=== PATIENT | female | born 1990 | race Caucasian/White ===

== ENCOUNTER 2016-07-01 15:50 | Emergency (ER) | payer OTHER ==
[2016-07-01] MEDS ORDERED: PHENAZOPYRIDINE 100 MG TABLET PO STA (16:26)
[2016-07-01] MEDS ORDERED: SULFAMETH/TRIMETH DS 800/160 MG TABLET PO STA (16:26)
[2016-07-01] MEDS ORDERED: SULFAMETH/TRIMETH DS 800/160 MG TABLET PO ONE (16:28)
[2016-07-01] MEDS ORDERED: PHENAZOPYRIDINE 100 MG TABLET PO ONE (16:29)
== END 2016-07-01 16:32 | disposition home or self-care (01) ==
DX: N30.90 Cystitis, unspecified without hematuria (principal)
CPT/HCPCS: 81001; 81025; 87077; 87086; 87181; 99283; A9270

== ENCOUNTER 2016-09-18 17:11 | Emergency (ER) | payer OTHER ==
[2016-09-18 17:36] VITALS: BP 99/64
== END 2016-09-18 18:34 | disposition left against medical advice (07) ==
LOC: ED 17:11
DX: Z53.21 Procedure and treatment not carried out due to patient leaving prior to being seen by health care provider (principal)

== ENCOUNTER 2016-10-23 17:36 | Emergency (ER) | payer OTHER ==
[2016-10-23 18:02] LABS: BILIRUBIN,URINE NEGATIVE (NEGATIVE); PH,URINE 6.5 PH (5.0-7.5)
[2016-10-23 18:07] LABS: UA CHARGE (STRIP ONLY) YES; UR CULTURE IF IND NOT INDICATED
[2016-10-23 18:08] LABS: HCG UR QUAL NEGATIVE
--- NOTE | 2016-10-23 21:02 | ED Physician Documentation ---
PD HPI FEMALE - Stated complaint Stated Complaint: FEMALE - Chief complaint Chief Complaint: UTI - History obtained from History obtained from: Patient, Family - History of Present Illness Timing - onset: How many weeks ago (1) Timing - duration: Weeks (1) Timing - details: Gradual onset, Still present, Waxing and waning Associated symptoms: Dysuria, Urinary frequency. No: Vaginal discharge, Genital sore/lesion Contributing factors: No: Similar symptoms before: Diagnosis (UTI) Recently seen: Not recently seen - Additional information Additional information: 25-year-old female with a history of urinary tract infection previously about 2- 3 times per year for the past 4 years since she started on the Depo Provera. She had developed symptoms after a trip down to [place] she was not able to get into see a provider at [facility] and so she started some Azo and she has been having some increased intake of water. Today she continued to have symptoms and a foul odor to the urine and she drank extra fluids urinated right before she came to the emergency department and then urinated here in the emergency department for her sample. She has had a issue previously with urine showing no infection and a second sample one week later growing E. coli. Review of Systems Constitutional: denies: Fever, Chills GI: denies: Abdominal Pain, Nausea, Vomiting : reports: Dysuria, Frequency. denies: Discharge Skin: denies: Rash Musculoskeletal: denies: Back pain PD PAST MEDICAL HISTORY - Past Medical History Past Medical History: No - Past Surgical History Past Surgical History: Yes HEENT: Tonsil/Adenoidectomy - Present Medications Home Medications: Ambulatory Orders Medication Instructions Recorded Confirmed Sulfamethoxazole/Trimethoprim 1 each PO BID #6 tablet 10/23/16 [Sulfamethoxazole-Tmp Ds Tablet] - Allergies Allergies/Adverse Reactions: Allergies Allergy/AdvReac Type Severity Reaction Status Date / Time No Known Drug Allergies Allergy Verified 09/18/16 17:36 - Social History Does the pt smoke?: No Smoking Status: Never smoker Does the pt drink ETOH?: No Does the pt have substance abuse?: No - Immunizations Immunizations are current?: Yes PD ED PE NORMAL - Vitals Vital signs reviewed: Yes (Normal) - General General: No acute distress, Well developed/nourished - HEENT HEENT: Atraumatic, PERRL, EOMI - Respiratory Respiratory: No respiratory distress - Back Back: No CVA TTP - Derm Derm: Normal color, Warm and dry, No rash - Extremities Extremities: No deformity, No edema - Neuro Neuro: No motor deficit, No sensory deficit - Psych Psych: Normal mood, Normal affect Results - Vitals Vitals: Vital Signs - 24 hr 10/23/16 17:45 Temperature 36.9 C Heart Rate 95 Respiratory 14 Rate Blood Pressure 102/62 O2 Saturation 100 Oxygen O2 Source Room air - Labs Labs: Laboratory Tests 10/23/16 10/23/16 17:50 17:50 Urine Color YELLOW Urine Clarity CLEAR Urine pH 6.5 Ur Specific [place] 1.020 1.020 Urine Protein NEGATIVE Urine Glucose (UA) NEGATIVE Urine Ketones NEGATIVE Urine Occult Blood NEGATIVE Urine Nitrite NEGATIVE Urine Bilirubin NEGATIVE Urine Urobilinogen 1 (NORMAL) Ur Leukocyte Esterase NEGATIVE Ur Microscopic Review NOT INDICATED Urine Culture Comments NOT INDICATED Urine HCG, Qual NEGATIVE PD MEDICAL DECISION MAKING - ED course Complexity details: reviewed old records, considered differential, d/w patient, d/w family ED course: 25-year-old female with frequent urinary tract infections has a clear specimen here today. She has had symptoms for the past week she has had similar symptoms numerous times previously and has had infection associated with this. She has previously grown an E. coli that was pansensitive. I have instructed the patient to take the Septra we prescribed here today and to hold 2 pills for future use. I have instructed her to take only 2 days of the course we prescribed here. Departure - Departure Disposition: 01 Home, Self Care Clinical Impression: Urinary tract infection Qualifiers: Urinary tract infection type: acute cystitis Hematuria presence: without hematuria Qualified Code(s): N30.00 - Acute cystitis without hematuria Instructions: ED UTI Cystitis Female Follow-Up: [facility] [Provider Group] Prescriptions: Sulfamethoxazole/Trimethoprim [Sulfamethoxazole-Tmp Ds Tablet] 1 each PO BID #6 tablet
[2016-10-23] MEDS ORDERED: AZITHROMYCIN 250 MG TABLET PO ONE (21:16)
[2016-10-23] MEDS ORDERED: DEXAMETHASONE 10 MG/ML VIAL ONE (21:16)
[2016-10-23 21:26] VITALS: BP 110/58
== END 2016-10-23 21:25 | disposition home or self-care (01) ==
LOC: ED 17:36
DX: N30.00 Acute cystitis without hematuria (principal)
CPT/HCPCS: 81003; 81025; 99283; A9270; 81001; 87086

== ENCOUNTER 2017-12-10 20:10 | Emergency (ER) | payer OTHER ==
[2017-12-10 20:31] LABS: BILIRUBIN,URINE NEGATIVE (NEGATIVE); GLUCOSE, URINE (UA) NEGATIVE (NEGATIVE); KETONES,URINE (UA) NEGATIVE (NEGATIVE); LEUKOCYTE ESTERASE, URINE LARGE (NEGATIVE); NITRITE,URINE NEGATIVE (NEGATIVE); OCCULT BLOOD,URINE LARGE (NEGATIVE); PROTEIN,URINE NEGATIVE (NEGATIVE); UROBILINOGEN,URINE 0.2 (NORMAL) E.U./dL (NORMAL)
[2017-12-10 20:34] LABS: CLARITY,URINE HAZY (CLEAR)
[2017-12-10 20:35] LABS: HCG UR QUAL NEGATIVE
[2017-12-10 20:52] LABS: BACTERIA,URINE Moderate /HPF (None Seen); RBC,URINE TNTC /HPF (0-5); SQUAMOUS EPITHELIAL CELL,UR RARE Squamous (<= Few); WBC CLUMPS,URINE PRESENT
[2017-12-10 22:26] VITALS: BP 106/54
--- NOTE | 2017-12-10 23:20 | ED Physician Documentation ---
PD HPI FEMALE - Stated complaint Stated Complaint: ABD PX/FEM - Chief complaint Chief Complaint: UTI - History obtained from History obtained from: Patient - History of Present Illness Timing - onset: Today (this morning) Timing - duration: Hours Timing - details: Abrupt onset Associated symptoms: Pelvic pain (suprapubic pressure), Dysuria. No: Fever, Abdominal pain Similar symptoms before: Diagnosis (similar to previous UTIs) Recently seen: Not recently seen Review of Systems Constitutional: denies: Fever, Chills, Sweats GI: denies: Abdominal Pain, Nausea, Vomiting : reports: Dysuria, Frequency, Hematuria. denies: Discharge, Vaginal bleeding , Now EGA Musculoskeletal: denies: Back pain PD PAST MEDICAL HISTORY - Past Medical History Past Medical History: No - Past Surgical History Past Surgical History: Yes HEENT: Tonsil/Adenoidectomy - Present Medications Home Medications: Ambulatory Orders Medication Instructions Recorded Confirmed Sulfamethoxazole/Trimethoprim 1 each PO BID #6 tablet 10/23/16 [Sulfamethoxazole-Tmp Ds Tablet] Nitrofurantoin [Macrobid] 100 mg PO BID #9 capsule 12/10/17 - Allergies Allergies/Adverse Reactions: Allergies Allergy/AdvReac Type Severity Reaction Status Date / Time No Known Drug Allergies Allergy Verified 12/10/17 20:17 - Social History Does the pt smoke?: No Smoking Status: Never smoker Does the pt drink ETOH?: No Does the pt have substance abuse?: No - Immunizations Immunizations are current?: Yes PD ED PE NORMAL - Vitals Vital signs reviewed: Yes - General General: Alert and oriented X 3, No acute distress, Well developed/nourished - Abdomen Abdomen: Soft, Non tender, Non distended - Back Back: No CVA TTP Results - Vitals Vitals: Vital Signs - 24 hr 12/10/17 12/10/17 20:16 22:24 Temperature 36.5 C Heart Rate 114 H 76 Respiratory 20 20 Rate Blood Pressure 118/74 106/54 L O2 Saturation 100 95 Oxygen O2 Source Room air - Labs Labs: Laboratory Tests 12/10/17 12/10/17 20:26 20:26 Urine Color YELLOW Urine Clarity HAZY Urine pH 7.0 Ur Specific [place] <=1.005 <=1.005 Urine Protein NEGATIVE Urine Glucose (UA) NEGATIVE Urine Ketones NEGATIVE Urine Occult Blood LARGE H Urine Nitrite NEGATIVE Urine Bilirubin NEGATIVE Urine Urobilinogen 0.2 (NORMAL) Ur Leukocyte Esterase LARGE H Urine RBC TNTC H Urine WBC >25 H Urine WBC Clumps PRESENT Ur Squamous Epith Cells RARE Squamous Urine Bacteria Moderate H Ur Microscopic Review INDICATED Urine Culture Comments INDICATED Urine HCG, Qual NEGATIVE PD MEDICAL DECISION MAKING - ED course Complexity details: reviewed results, re-evaluated patient, considered differential, d/w patient - Sepsis Event Vital Signs: Vital Signs - 24 hr 12/10/17 12/10/17 20:16 22:24 Temperature 36.5 C Heart Rate 114 H 76 Respiratory 20 20 Rate Blood Pressure 118/74 106/54 L O2 Saturation 100 95 Oxygen O2 Source Room air Departure - Departure Disposition: 01 Home, Self Care Clinical Impression: Urinary tract infection Condition: Good Instructions: ED UTI Cystitis Female Prescriptions: Nitrofurantoin [Macrobid] 100 mg PO BID #9 capsule Discharge Date/Time: 12/10/17 23:36
[2017-12-10] MEDS ORDERED: NITROFURANTOIN MACRO 100 MG CAPSULE PO STA (23:29)
== END 2017-12-10 23:36 | disposition home or self-care (01) ==
LOC: ED 20:10
DX: N39.0 Urinary tract infection, site not specified (principal)
CPT/HCPCS: 81001; 81025; 87086; 99283; A9270; 81003; 87077; 87181

== ENCOUNTER 2019-06-22 23:13 | Emergency (ER) | payer OTHER ==
[2019-06-22 23:19] VITALS: BP 114/63
--- NOTE | 2019-06-23 00:19 | ED Physician Documentation ---
PD HPI ABD PAIN - Stated complaint Stated Complaint: CONSTIPATION/AB PX - Chief complaint Chief Complaint: Abd Pain - History obtained from History obtained from: Patient, Family - History of Present Illness Timing - onset: How many days ago (5) Timing - duration: Days (5) Timing - details: Gradual onset, Still present Quality: Cramping, Fullness/distended Location: All over / everywhere Improved by: BM Associated symptoms: Nausea, Constipation. No: Vomiting Similar symptoms before: Diagnosis (constipation) Recently seen: Not recently seen - Additional information Additional information: 28-year-old female who has periodically infrequent bowel movements has not had a bowel movement for 5 days. She has become distended and she is having some pain. She took some milk of magnesia and Ex-Lax to try and counter this and her pain became intolerable. She is having periodic severe pain. She has never had to use an enema previously. Review of Systems Constitutional: denies: Fever, Chills, Myalgias Ears: denies: Ear pain Nose: denies: Rhinorrhea / runny nose, Congestion Throat: denies: Sore throat Respiratory: denies: Dyspnea, Cough GI: reports: Abdominal Pain, Nausea, Constipation. denies: Vomiting : denies: Dysuria, Frequency PD PAST MEDICAL HISTORY - Past Surgical History Past Surgical History: Yes HEENT: Tonsil/Adenoidectomy - Present Medications Home Medications: Ambulatory Orders Medication Instructions Recorded Confirmed Sulfamethoxazole/Trimethoprim 1 each PO BID #6 tablet 10/23/16 [Sulfamethoxazole-Tmp Ds Tablet] Nitrofurantoin [Macrobid] 100 mg PO BID #9 capsule 12/10/17 - Allergies Allergies/Adverse Reactions: Allergies Allergy/AdvReac Type Severity Reaction Status Date / Time No Known Drug Allergies Allergy Verified 06/22/19 23:19 - Social History Does the pt smoke?: No Smoking Status: Never smoker Does the pt drink ETOH?: No Does the pt have substance abuse?: No - Immunizations Immunizations are current?: Yes PD ED PE NORMAL - Vitals Vital signs reviewed: Yes (normal ) - General General: No acute distress, Well developed/nourished - HEENT HEENT: Atraumatic, PERRL, EOMI - Respiratory Respiratory: No respiratory distress - Abdomen Abdomen: Normal bowel sounds, Soft, Non tender, Non distended, No organomegaly, Other (exam after BM) - Back Back: No CVA TTP - Derm Derm: Normal color, Warm and dry, No rash - Extremities Extremities: No deformity, No edema - Neuro Neuro: Alert and oriented X 3, land inspector 2-12 intact, No motor deficit, No sensory deficit, Normal speech Eye Opening: Spontaneous Motor: Obeys Commands Verbal: Oriented GCS Score: 15 - Psych Psych: Normal mood, Normal affect Results - Vitals Vitals: Vital Signs - 24 hr 06/22/19 23:17 Temperature 36.6 C Heart Rate 87 Respiratory 17 Rate Blood Pressure 114/63 O2 Saturation 100 Oxygen O2 Source Room air PD MEDICAL DECISION MAKING - ED course Complexity details: considered differential, d/w patient, d/w family ED course: 28-year-old female with constipation is administered a oil retention enema with excellent results and resolution of symptoms. Departure - Departure Disposition: 01 Home, Self Care Clinical Impression: Constipation Qualifiers: Constipation type: unspecified constipation type Qualified Code(s): K59.00 - Constipation, unspecified Condition: Stable Instructions: ED Constipation Follow-Up: [facility] [Provider Group]
== END 2019-06-23 00:24 | disposition home or self-care (01) ==
LOC: ED 23:13
DX: K59.00 Constipation, unspecified (principal)
CPT/HCPCS: 99282; 99284